=== PATIENT | female | born 1980 | race Caucasian/White ===

== ENCOUNTER 2017-09-22 10:44 | Emergency (ER) | payer MEDICARE, MEDICAID ==
[~2017-09-22] VITALS: Ht 157.5 cm; Wt 90.7 kg
[~2017-09-22 10:44] MED LIST: BUPR100T4 PO; FLUO40CA8 PO; LAMO25TA PO; LEVO75TA PO; METO100T14 PO; METO50TA16 PO
[2017-09-22 10:47] VITALS: BP 124/76
[2017-09-22] MEDS ORDERED: HYDROCODONE/APAP 5/325MG 1 EACH TABLET ONE (11:07)
--- NOTE | 2017-09-22 11:10 | NUR ---
PATIENT STATING SHE IS ALLERGIC TO NORCO AND VALIUM. MD INFORMED, NORCO NOT ADMINISTERED, MEDICATION RETURNED.
[2017-09-22] MEDS ORDERED: HYDROCODONE/APAP 5/325MG 1 EACH TABLET PO ONE (11:30)
== END 2017-09-22 12:10 | disposition home or self-care (01) ==
LOC: ER 10:50
DX: S83.92XA Sprain of unspecified site of left knee, initial encounter (principal); I10 Essential (primary) hypertension; F31.9 Bipolar disorder, unspecified; Z88.6 Allergy status to analgesic agent; Z88.8 Allergy status to other drugs, medicaments and biological substances; Z98.890 Other specified postprocedural states; W01.0XXA Fall on same level from slipping, tripping and stumbling without subsequent striking against object, initial encounter; Y93.89 Activity, other specified; Y92.89 Other specified places as the place of occurrence of the external cause; Y99.8 Other external cause status
CPT/HCPCS: 73564; 99284; A4606; Z7610

== ENCOUNTER 2017-10-23 19:27 | Emergency (ER) | payer MEDICARE, MEDICAID ==
[~2017-10-23] VITALS: Ht 157.5 cm; Wt 90.7 kg
[2017-10-23 19:38] VITALS: BP 137/99
[2017-10-23] MEDS ORDERED: oxyCODONE/APAP (5/325 MG) 1 UDTAB TABLET PO ONE (20:30)
[2017-10-23] MEDS ORDERED: oxyCODONE/APAP (5/325 MG) 1 UDTAB TABLET ONE (20:31)
== END 2017-10-23 20:51 | disposition left against medical advice (07) ==
LOC: ER 19:27
DX: M25.562 Pain in left knee (principal); M79.641 Pain in right hand; M79.642 Pain in left hand; F31.9 Bipolar disorder, unspecified; Z98.890 Other specified postprocedural states; Z88.6 Allergy status to analgesic agent; Z88.8 Allergy status to other drugs, medicaments and biological substances; F10.10 Alcohol abuse, uncomplicated; I10 Essential (primary) hypertension; Y90.9 Presence of alcohol in blood, level not specified
CPT/HCPCS: 73560; 99284; A4606; Z7610

== ENCOUNTER 2018-01-26 14:36 | Emergency (ER) | payer MEDICARE, MEDICAID ==
[~2018-01-26] VITALS: Ht 157.5 cm; Wt 90.7 kg
[2018-01-26 15:00] VITALS: BP 102/75
[2018-01-26] MEDS ORDERED: IBUPROFEN 600 MG TABLET PO ONE (15:28)
[2018-01-26] MEDS: IBUPROFEN 600 MG TABLET PO ONE (15:30)
[2018-01-26 15:51] LABS: BASOPHILS % (AUTO) 0.4 % (0.0-2.0); EOSINOPHILS % (AUTO) 0.4 % (0.0-6.0); HEMATOCRIT 41 % (33-45); HEMOGLOBIN 13.4 g/dL (11.5-14.8); LYMPHOCYTES # (AUTO) 2.2 /CMM (0.8-4.8); LYMPHOCYTES % (AUTO) 23.5 % (20.0-44.0); MEAN CORPUSCULAR HGB CONC 33 g/dl (31.0-36.0); MEAN CORPUSCULAR VOLUME 86 fL (82-100); MONOCYTES # (AUTO) 0.5 /CMM (0.1-1.30); MONOCYTES % (AUTO) 5.9 % (2.0-12.0); NEUTROPHILS # (AUTO) 6.5 /CMM (1.8-8.9); NEUTROPHILS % (AUTO) 69.8 % (43.0-81.0); PLATELET COUNT (AUTO) 366 /CMM (150-450); RDW COEFFICIENT OF VARIATION 13.3 (11.5-15.0); RED BLOOD CELL COUNT(AUTO) 4.75 MIL/uL (4.0-5.2); WHITE BLOOD COUNT (AUTO) 9.2 K/uL (4.3-11.0)
[2018-01-26 15:58] LABS: CALCIUM, SERUM 8.7 mg/dL (8.5-10.1); CREATININE 0.8 mg/dL (0.6-1.3); POTASSIUM 4.4 mmol/L (3.5-5.1)
[2018-01-26 16:29] LABS: INR 0.97 (0.87-1.13)
== END 2018-01-26 17:09 | disposition home or self-care (01) ==
LOC: ER 14:40
DX: R51 Headache (principal); R42 Dizziness and giddiness; I10 Essential (primary) hypertension; F31.9 Bipolar disorder, unspecified; Z88.5 Allergy status to narcotic agent; E11.9 Type 2 diabetes mellitus without complications; F10.10 Alcohol abuse, uncomplicated; Y90.9 Presence of alcohol in blood, level not specified; Z60.2 Problems related to living alone; Z98.890 Other specified postprocedural states
CPT/HCPCS: 36415; 70450; 80048; 84703; 85025; 85730; 99285; A4606; Z7610

== ENCOUNTER 2018-02-05 18:27 | Emergency (ER) | payer MEDICARE, MEDICAID ==
[~2018-02-05] VITALS: Ht 157.5 cm; Wt 90.7 kg
[2018-02-05 18:34] VITALS: BP 146/88
[2018-02-05] MEDS ORDERED: diphenhydrAMINE HCL 50 MG/ML VIAL IV ONE (19:00)
[2018-02-05] MEDS ORDERED: IV NS 0.9% 1,000 ML BAG IV ONE (19:00)
[2018-02-05] MEDS ORDERED: KETOROLAC TROMETHAMINE INJ 30 MG/ML VIAL IV ONE (19:00)
[2018-02-05] MEDS ORDERED: METOCLOPRAMIDE HCL 10 MG/2 ML VIAL IV ONE (19:00)
[2018-02-05 19:20] LABS: BASOPHILS # (AUTO) 0.1 /CMM (0.0-0.2); BASOPHILS % (AUTO) 0.5 % (0.0-2.0); EOSINOPHILS % (AUTO) 0.7 % (0.0-6.0); HEMATOCRIT 41 % (33-45); HEMOGLOBIN 13.8 g/dL (11.5-14.8); LYMPHOCYTES # (AUTO) 1.9 /CMM (0.8-4.8); LYMPHOCYTES % (AUTO) 17.6 % (20.0-44.0); MEAN CORPUSCULAR HGB CONC 34 g/dl (31.0-36.0); MEAN CORPUSCULAR VOLUME 85 fL (82-100); MONOCYTES # (AUTO) 0.6 /CMM (0.1-1.30); MONOCYTES % (AUTO) 5.5 % (2.0-12.0); NEUTROPHILS # (AUTO) 8.1 /CMM (1.8-8.9); NEUTROPHILS % (AUTO) 75.7 % (43.0-81.0); PLATELET COUNT (AUTO) 405 /CMM (150-450); RED BLOOD CELL COUNT(AUTO) 4.79 MIL/uL (4.0-5.2); WHITE BLOOD COUNT (AUTO) 10.8 K/uL (4.3-11.0)
[2018-02-05 19:31] LABS: CALCIUM, SERUM 8.6 mg/dL (8.5-10.1); CREATININE 0.9 mg/dL (0.6-1.3); POTASSIUM 3.8 mmol/L (3.5-5.1)
[2018-02-05] MEDS ORDERED: KETOROLAC TROMETHAMINE INJ 30 MG/ML VIAL ONE (19:33)
[2018-02-05] MEDS ORDERED: METOCLOPRAMIDE HCL 10 MG/2 ML VIAL ONE (19:33)
[2018-02-05] MEDS ORDERED: diphenhydrAMINE HCL 50 MG/ML VIAL ONE (19:33)
[2018-02-05 19:37] LABS: ALBUMIN 3.7 g/dL (3.4-5.0); BILIRUBIN,DIRECT 0.1 mg/dL (0.0-0.2); BILIRUBIN,TOTAL 0.3 mg/dL (0.2-1.0); TOTAL PROTEIN, SERUM 7.3 g/dL (6.4-8.2)
--- NOTE | 2018-02-05 19:48 | NUR ---
PT IS HAVING ARGUMENT WITH SIGNIFICANT OTHER & DOESN'T WANT TO BE TREATED FOR HER HEADACHE @ THIS TIME. PT VERBALLY ABUSIVE TO ME STS " I DON'T NEED TELL U WHAT'S WRONG WITH ME, CAN'T U JUST READ IT FROM MY CHART, ARE YOU A DOCTOR?". EXPLAINED TO PT THAT I STILL NEED TO ASSESS HER & TO KNOW WHAT'S GOING ON COMING FROM THE PT. JAMIL LILLY AWARE OF THE SITUATION.
--- NOTE | 2018-02-05 20:07 | NUR ---
PT WALKED OUT OF ED, VERBALLY ABUSIVE TO STAFF. JAMIL LILLY AWARE.
== END 2018-02-05 20:20 | disposition left against medical advice (07) ==
LOC: ER 18:28
DX: R51 Headache (principal); I10 Essential (primary) hypertension; E11.9 Type 2 diabetes mellitus without complications; F31.9 Bipolar disorder, unspecified; E03.9 Hypothyroidism, unspecified; F10.10 Alcohol abuse, uncomplicated; Y90.9 Presence of alcohol in blood, level not specified; Z90.721 Acquired absence of ovaries, unilateral; Z88.5 Allergy status to narcotic agent; Z88.6 Allergy status to analgesic agent; Z88.8 Allergy status to other drugs, medicaments and biological substances; Z60.2 Problems related to living alone
CPT/HCPCS: 36415; 80048; 80076; 84702; 85025; 99284; A4216; J2765; J7030; A4606; J1200; J1885; Z7610

== ENCOUNTER 2019-01-06 20:44 | Emergency (ER) | payer MEDICARE, MEDICAID ==
[~2019-01-06] VITALS: Ht 157.5 cm; Wt 99.8 kg
[~2019-01-06 20:44] MED LIST changes: -LAMO25TA PO; +LAMO25TA10 PO
--- NOTE | 2019-01-06 21:11 | NUR ---
CALLED PT TO BE TRIAGED, NO ANSWER
[2019-01-06 21:14] VITALS: BP 149/100
== END 2019-01-06 22:15 | disposition home or self-care (01) ==
LOC: ER 20:45
DX: F10.129 Alcohol abuse with intoxication, unspecified (principal); F41.9 Anxiety disorder, unspecified; I10 Essential (primary) hypertension; E11.9 Type 2 diabetes mellitus without complications; F32.9 Major depressive disorder, single episode, unspecified; E03.9 Hypothyroidism, unspecified; Z98.890 Other specified postprocedural states; Z88.8 Allergy status to other drugs, medicaments and biological substances; Z60.2 Problems related to living alone; Z79.899 Other long term (current) drug therapy; Y90.9 Presence of alcohol in blood, level not specified

== ENCOUNTER 2019-01-09 09:51 | Emergency (ER) | payer OTHER, MEDICARE, MEDICAID ==
[~2019-01-09] VITALS: Ht 157.5 cm; Wt 99.8 kg
--- NOTE | 2019-01-09 10:05 | NUR ---
YOGI, C/O "ETOH WITHDRAWAL, LAST ETOH WAS 3 DAYS AGO", TO ER BED 13, HOOKED TO MONITOR, AWAITING MD BUTTERFIELD.
--- NOTE | 2019-01-09 10:09 | NUR ---
SEEN BY DR LAY
[2019-01-09 10:22] VITALS: BP 137/81
--- NOTE | 2019-01-09 10:22 | NUR ---
Patient incustody left in no apparent distress accompanied by 2 [employer].
--- NOTE | 2019-01-09 10:22 | NUR ---
Patient discharged in custody in stable condition. Written and verbal after care instructions given. Patient verbalizes understanding of instruction.
== END 2019-01-09 10:22 ==
LOC: ER 09:53
DX: I10 Essential (primary) hypertension (principal); E11.9 Type 2 diabetes mellitus without complications; F32.9 Major depressive disorder, single episode, unspecified; E03.9 Hypothyroidism, unspecified; Z98.890 Other specified postprocedural states; Z88.8 Allergy status to other drugs, medicaments and biological substances; Z88.6 Allergy status to analgesic agent; Z60.2 Problems related to living alone; Z79.899 Other long term (current) drug therapy

== ENCOUNTER 2019-09-12 10:55 | Emergency (ER) | payer MEDICARE, OTHER ==
[~2019-09-12] VITALS: Ht 157.5 cm; Wt 104.3 kg
[2019-09-12 11:00] VITALS: BP 148/91
[2019-09-12] MEDS ORDERED: LORAZEPAM 0.5 MG TABLET ONE (11:14)
--- NOTE | 2019-09-12 11:18 | NUR ---
patient a/ox4, ambulatory with steady gait, breathinge ellen and unlabored, no sob noted. No distress noted. Patient discharged to home in stable condition. Written and verbal after care instructions given. Patient verbalizes understanding of instruction. Instructed not to drive.
[2019-09-12] MEDS ORDERED: LORAZEPAM 1 MG TABLET PO ONE (11:30)
== END 2019-09-12 11:20 | disposition home or self-care (01) ==
LOC: ER 10:55
DX: F13.239 Sedative, hypnotic or anxiolytic dependence with withdrawal, unspecified (principal); I10 Essential (primary) hypertension; E11.9 Type 2 diabetes mellitus without complications; F32.9 Major depressive disorder, single episode, unspecified; E03.9 Hypothyroidism, unspecified; Z98.890 Other specified postprocedural states; Z88.8 Allergy status to other drugs, medicaments and biological substances; Z88.6 Allergy status to analgesic agent; Z79.899 Other long term (current) drug therapy

== ENCOUNTER 2019-09-19 20:38 | Emergency (ER) | payer MEDICARE, MEDICAID ==
[~2019-09-19] VITALS: Ht 157.5 cm; Wt 104.3 kg
--- NOTE | 2019-09-19 21:24 | NUR ---
PT AAOX4. AMBULATORY WITH STEADY GAIT. BIBSELF C/O LIGHT HEADED AND WANTING TO VOMIT. PT STATED SHE TOOK 3 ATIVANS AND DRANK 12 BOTTLES OF IPA BEER. PT PLACED IN BED 11, ON MONITOR AND PULSE OX. VSS.
[2019-09-19] MEDS ORDERED: IV NS 0.9% 1,000 ML BAG IV ONE (21:30)
[2019-09-19 21:41] LABS: BASOPHILS # (AUTO) 0.1 /CMM (0.0-0.2); BASOPHILS % (AUTO) 0.4 % (0.0-2.0); EOSINOPHILS % (AUTO) 0.6 % (0.0-6.0); HEMATOCRIT 35 % (33-45); HEMOGLOBIN 10.8 g/dL (11.5-14.8); LYMPHOCYTES # (AUTO) 3.3 /CMM (0.8-4.8); LYMPHOCYTES % (AUTO) 24.5 % (20.0-44.0); MEAN CORPUSCULAR HGB CONC 31 g/dl (31.0-36.0); MEAN CORPUSCULAR VOLUME 69 fL (82-100); MONOCYTES # (AUTO) 0.9 /CMM (0.1-1.30); MONOCYTES % (AUTO) 6.7 % (2.0-12.0); NEUTROPHILS % (AUTO) 67.8 % (43.0-81.0); PLATELET COUNT (AUTO) 466 /CMM (150-450); RED BLOOD CELL COUNT(AUTO) 5.11 MIL/uL (4.0-5.2); WHITE BLOOD COUNT (AUTO) 13.3 K/uL (4.3-11.0)
[2019-09-19 21:50] LABS: CALCIUM, SERUM 9.1 mg/dL (8.5-10.1); CARBON DIOXIDE 24 mmol/L (21-32); CHLORIDE 102 mmol/L (98-107); CREATININE 0.8 mg/dL (0.6-1.3); GLUCOSE 91 mg/dL (74-106); POTASSIUM 3.3 mmol/L (3.5-5.1); SODIUM SERUM 140 mmol/L (136-145); UREA NITROGEN, BLOOD 14 mg/dL (7-18)
[2019-09-19 21:55] LABS: ALANINE AMINOTRANSFERASE 41 U/L (12-78); ALBUMIN 3.7 g/dL (3.4-5.0); ALCOHOL, BLOOD 51 mg/dL (0-0); ALKALINE PHOSPHATASE 123 U/L (46-116); ASPARTATE AMINOTRANSFERASE 51 U/L (15-37); BILIRUBIN,DIRECT 0.1 mg/dL (0.0-0.2); BILIRUBIN,TOTAL 0.2 mg/dL (0.2-1.0)
--- NOTE | 2019-09-19 21:55 | NUR ---
URINE SENT TO LAB
[2019-09-19 21:56] LABS: ACETAMINOPHEN < 10 ug/ml (10-30); SALICYLATE 2.4 mg/dL (2.8-20.0)
[2019-09-19 22:00] LABS: APPEARANCE,URINE Clear (CLEAR); BILIRUBIN,URINE Negative (NEGATIVE); BLOOD, URINE Large Ery/uL (NEGATIVE); COLOR,URINE Yellow (YELLOW); KETONES,URINE Negative (NEGATIVE); LEUKOCYTE ESTERASE ,URINE Trace (NEGATIVE); NITRITE, URINE Negative (NEGATIVE); PROTEIN,URINE Negative (NEGATIVE); UGLUCOSE Negative (NEGATIVE); UROBILINOGEN,URINE 0.2 EU/dL (0.2)
[2019-09-19 22:16] LABS: BACTERIA,URINE Few /HPF (None Seen); RBC,URINE 21-50 /HPF (0-2); SQUAMOUS EPITHELIAL CELL,UR Few /HPF (None Seen)
--- NOTE | 2019-09-19 23:00 | NUR ---
IV removed. Catheter intact and site benign. Pressure and 4x4 applied to site. No bleeding noted.
--- NOTE | 2019-09-19 23:33 | NUR ---
Patient discharged to home in stable condition. Written and verbal after care instructions given. Patient verbalizes understanding of instruction. Pt ambulated with steady gait. Picked up by .
[2019-09-19 23:42] VITALS: BP 127/78
== END 2019-09-19 23:42 | disposition home or self-care (01) ==
LOC: ER 20:38
DX: F10.239 Alcohol dependence with withdrawal, unspecified (principal); D64.9 Anemia, unspecified; I10 Essential (primary) hypertension; E11.9 Type 2 diabetes mellitus without complications; F32.9 Major depressive disorder, single episode, unspecified; E03.9 Hypothyroidism, unspecified; Z98.890 Other specified postprocedural states; Z88.6 Allergy status to analgesic agent; Z88.8 Allergy status to other drugs, medicaments and biological substances; Z79.899 Other long term (current) drug therapy; Y90.9 Presence of alcohol in blood, level not specified
CPT/HCPCS: 36415; 80048; 80076; 80305; 80307; 80329; 81001; 84703; 85025; 87086; 93005; 99284; G0480; J7030; 81000-TC

== ENCOUNTER 2019-09-22 06:11 | Emergency (ER) | payer MEDICARE, OTHER ==
[~2019-09-22] VITALS: Ht 157.5 cm; Wt 104.3 kg
[2019-09-22 06:20] VITALS: BP 134/68
[2019-09-22] MEDS ORDERED: OLANZAPINE 10 MG VIAL IM ONE ×2 (06:30→06:32)
== END 2019-09-22 06:58 | disposition home or self-care (01) ==
LOC: ER 06:16
DX: F41.9 Anxiety disorder, unspecified (principal); F31.9 Bipolar disorder, unspecified; I10 Essential (primary) hypertension; E11.9 Type 2 diabetes mellitus without complications; E03.9 Hypothyroidism, unspecified; E66.01 Morbid (severe) obesity due to excess calories; Z68.41 Body mass index [BMI] 40.0-44.9, adult; Z90.89 Acquired absence of other organs; Z88.6 Allergy status to analgesic agent; Z88.5 Allergy status to narcotic agent; Z88.8 Allergy status to other drugs, medicaments and biological substances; Z79.899 Other long term (current) drug therapy
CPT/HCPCS: 96372; 99283; J3490

== ENCOUNTER 2019-09-23 01:31 | Emergency (ER) | payer MEDICARE, OTHER ==
[~2019-09-23] VITALS: Ht 157.5 cm; Wt 104.3 kg
[2019-09-23 01:38] VITALS: BP 160/100
== END 2019-09-23 01:45 | disposition left against medical advice (07) ==
LOC: ER 01:33
DX: Z53.21 Procedure and treatment not carried out due to patient leaving prior to being seen by health care provider (principal); R06.02 Shortness of breath; I10 Essential (primary) hypertension; E11.9 Type 2 diabetes mellitus without complications; F32.9 Major depressive disorder, single episode, unspecified; E03.9 Hypothyroidism, unspecified; Z98.890 Other specified postprocedural states

== ENCOUNTER 2020-05-23 01:27 | Emergency (ER) | payer MEDICARE, OTHER ==
[~2020-05-23] VITALS: Ht 160 cm; Wt 104.3 kg
--- NOTE | 2020-05-23 01:49 | NUR ---
mellisa 88 from home for etoh. field bs 155. pt rr even and unlabored. no sob noted. no nvd at this time. no acute distress noted. pt connected to monitor. pt waiting for md vizcarra.
[2020-05-23 02:14] LABS: BASOPHILS # (AUTO) 0.1 /CMM (0.0-0.2); BASOPHILS % (AUTO) 0.7 % (0.0-2.0); EOSINOPHILS % (AUTO) 0.1 % (0.0-6.0); HEMATOCRIT 47 % (33-45); HEMOGLOBIN 15.6 g/dL (11.5-14.8); LYMPHOCYTES # (AUTO) 1.4 /CMM (0.8-4.8); LYMPHOCYTES % (AUTO) 16.9 % (20.0-44.0); MEAN CORPUSCULAR HGB CONC 33 g/dl (31.0-36.0); MEAN CORPUSCULAR VOLUME 80 fL (82-100); MONOCYTES # (AUTO) 0.9 /CMM (0.1-1.30); MONOCYTES % (AUTO) 11.1 % (2.0-12.0); NEUTROPHILS # (AUTO) 5.9 /CMM (1.8-8.9); NEUTROPHILS % (AUTO) 71.2 % (43.0-81.0); PLATELET COUNT (AUTO) 373 /CMM (150-450); RED BLOOD CELL COUNT(AUTO) 5.86 MIL/uL (4.0-5.2); WHITE BLOOD COUNT (AUTO) 8.3 K/uL (4.3-11.0)
[2020-05-23 02:48] LABS: ALBUMIN 3.4 g/dL (3.4-5.0); BILIRUBIN,TOTAL 0.2 mg/dL (0.2-1.0); CALCIUM, SERUM 8.3 mg/dL (8.5-10.1); CREATININE 0.9 mg/dL (0.6-1.3); POTASSIUM 3.7 mmol/L (3.5-5.1)
--- NOTE | 2020-05-23 06:22 | NUR ---
PATIENT SPOKE WITH BOYFRIEND ON THE PHONE REGARDING PICKING PATIENT UP FROM ER.
--- NOTE | 2020-05-23 06:32 | NUR ---
PATIENT IS AMBULATORY WITH A STEADY GAIT.
--- NOTE | 2020-05-23 06:33 | NUR ---
PATIENT IS ALERT AND ORIENTED TO NAME, DATE, TIME, PLACE. PATIENT ABLE TO VERIFY PERSONAL ADDRESS.
--- NOTE | 2020-05-23 06:34 | NUR ---
PATIENT OFFERED WARM BLANKET AND CLOTHING DUE TO PATIENT WEARING SHIRT AND SHORTS. Addendum: 05/23/20 at 0642 by BIPIN PATIENT REFUSED.
--- NOTE | 2020-05-23 06:35 | NUR ---
PATIENT IS WALKING AWAY FROM BED W/ STEADY GAIT, STATING, "I WANT TO GET OUT OF HERE". NURSING STAFF AND ER DOCTOR OFFERED PATIENT TO STAY IN BED UNTIL BOYFRIEND ARRIVES, PATIENT STATES, "NO, FUCK YOU!" PATIENT THEN CONTINUES TO STORM OUT OF THE ER.
--- NOTE | 2020-05-23 06:35 | NUR ---
PATIENT STATES, "I DON'T WANT TO WAIT IN HERE BECAUSE MY BOYFRIEND IS SO STUPID AND WON'T BE ABLE TO FIND ME."
--- NOTE | 2020-05-23 07:40 | NUR ---
Patient discharged to home in stable condition. Written and verbal after care instructions given. Patient verbalizes understanding of instruction.
[2020-05-23 07:57] VITALS: BP 120/82
== END 2020-05-23 07:57 | disposition home or self-care (01) ==
LOC: ER 01:29
DX: F10.121 Alcohol abuse with intoxication delirium (principal); I10 Essential (primary) hypertension; E11.9 Type 2 diabetes mellitus without complications; F31.9 Bipolar disorder, unspecified; E03.9 Hypothyroidism, unspecified; Y90.8 Blood alcohol level of 240 mg/100 ml or more; Z87.11 Personal history of peptic ulcer disease; Z98.890 Other specified postprocedural states; Z88.6 Allergy status to analgesic agent; Z88.5 Allergy status to narcotic agent; Z88.8 Allergy status to other drugs, medicaments and biological substances; Z79.899 Other long term (current) drug therapy
CPT/HCPCS: 36415; 80053-TC; 83690-TC; 84702-TC; 85025-TC; G0480

== ENCOUNTER 2020-06-11 22:27 | Emergency (ER) | payer MEDICARE, OTHER ==
[~2020-06-11] VITALS: Ht 157.5 cm; Wt 105.7 kg
--- NOTE | 2020-06-11 22:30 | NUR ---
PT BIBRA FROM STREET C/O ALCOHOL INTOXICATION. PT SCREAMING AND VERY AGGRESSIVE ON ARRIVAL. PT UNCOOPERATIVE AND VERBALLY AGGRESSIVE TOWARDS STAFF. DENIES SI/HI, STATES "I'M JUST AN ALCOHOLIC". RESPIRATIONS EVEN AND UNLABORED. NO ACUTE DISTRESS NOTED AT THIS TIME. PT PLACED ON MONITOR, WILL CONTINUE TO MONITOR
[2020-06-11] MEDS ORDERED: diphenhydrAMINE HCL 50 MG/ML VIAL ONE (22:37)
[2020-06-11] MEDS ORDERED: HALOPERIDOL LACTATE INJ 5 MG/ML VIAL ONE (22:37)
[2020-06-11] MEDS ORDERED: diphenhydrAMINE HCL 50 MG/ML VIAL IM ONE (23:00)
[2020-06-11] MEDS ORDERED: HALOPERIDOL LACTATE INJ 5 MG/ML VIAL IM ONE (23:00)
[2020-06-11 23:02] LABS: BASOPHILS # (AUTO) 0.2 /CMM (0.0-0.2); BASOPHILS % (AUTO) 1.2 % (0.0-2.0); EOSINOPHILS % (AUTO) 0.1 % (0.0-6.0); HEMATOCRIT 45 % (33-45); HEMOGLOBIN 14.7 g/dL (11.5-14.8); LYMPHOCYTES # (AUTO) 5.3 /CMM (0.8-4.8); LYMPHOCYTES % (AUTO) 40.9 % (20.0-44.0); MEAN CORPUSCULAR HGB CONC 33 g/dl (31.0-36.0); MEAN CORPUSCULAR VOLUME 80 fL (82-100); MONOCYTES # (AUTO) 0.6 /CMM (0.1-1.30); MONOCYTES % (AUTO) 4.7 % (2.0-12.0); NEUTROPHILS # (AUTO) 6.8 /CMM (1.8-8.9); NEUTROPHILS % (AUTO) 53.1 % (43.0-81.0); PLATELET COUNT (AUTO) 566 /CMM (150-450); RED BLOOD CELL COUNT(AUTO) 5.69 MIL/uL (4.0-5.2); WHITE BLOOD COUNT (AUTO) 12.8 K/uL (4.3-11.0)
[2020-06-11 23:12] LABS: ALANINE AMINOTRANSFERASE 97 U/L (12-78); ALBUMIN 3.7 g/dL (3.4-5.0); ALCOHOL, BLOOD 406 mg/dL (0-0); ALKALINE PHOSPHATASE 115 U/L (46-116); ASPARTATE AMINOTRANSFERASE 98 U/L (15-37); BILIRUBIN,DIRECT 0.1 mg/dL (0.0-0.2); BILIRUBIN,TOTAL 0.3 mg/dL (0.2-1.0); CALCIUM, SERUM 8.8 mg/dL (8.5-10.1); CARBON DIOXIDE 27 mmol/L (21-32); CHLORIDE 105 mmol/L (98-107); GLUCOSE 173 mg/dL (74-106); POTASSIUM 3.4 mmol/L (3.5-5.1); SODIUM SERUM 148 mmol/L (136-145); TOTAL PROTEIN, SERUM 8.4 g/dL (6.4-8.2); UREA NITROGEN, BLOOD 7 mg/dL (7-18)
[2020-06-11 23:13] LABS: ACETAMINOPHEN < 2 ug/ml (10-30)
[2020-06-12] MEDS ORDERED: LORAZEPAM INJ 2 MG/ML VIAL ONE ×2 (01:22→05:27)
--- NOTE | 2020-06-12 01:27 | NUR ---
PT AWAKE, SCREAMING INAPPROPRIATELY. SITTER AT BEDSIDE. MD AWARE.
--- NOTE | 2020-06-12 01:28 | NUR ---
verbal order for ativan 2mg given and carried out
[2020-06-12] MEDS ORDERED: LORAZEPAM INJ 2 MG/ML VIAL IM ONE ×2 (01:30→05:30)
[2020-06-12] MEDS ORDERED: OLANZAPINE 10 MG VIAL IM ONE (02:46)
[2020-06-12] MEDS ORDERED: HALOPERIDOL LACTATE INJ 5 MG/ML VIAL ONE ×2 (02:49→05:27)
--- NOTE | 2020-06-12 03:59 | NUR ---
PER ER MD ORDER 5 MG IM HALDOL XNOW.
--- NOTE | 2020-06-12 05:21 | NUR ---
ATTEMPTED TO CONTACT PT'S FRIEND MATHEW ([phone]) TO FAMILY LIFE COUNSELOR PATIENT. LEFT MESSAGE, WILL FOLLOW UP
[2020-06-12] MEDS ORDERED: diphenhydrAMINE HCL 50 MG/ML VIAL ONE (05:27)
[2020-06-12] MEDS ORDERED: diphenhydrAMINE HCL 50 MG/ML VIAL IM ONE (05:30)
[2020-06-12] MEDS ORDERED: HALOPERIDOL LACTATE INJ 5 MG/ML VIAL IM ONE ×2 (05:30→06:00)
--- NOTE | 2020-06-12 05:30 | NUR ---
PT AWAKE, SCREAMING INAPPROPRIATELY. SITTER AT BEDSIDE. MD AWARE. PT STILL ON MONITOR, WILL CONTINUE TO MONITOR.
[2020-06-12 05:38] LABS: BILIRUBIN,URINE NEGATIVE (NEGATIVE); COLOR,URINE YELLOW (YELLOW); LEUKOCYTE ESTERASE ,URINE NEGATIVE (NEGATIVE); NITRITE, URINE NEGATIVE (NEGATIVE); PROTEIN,URINE NEGATIVE (NEGATIVE); UGLUCOSE NEGATIVE (NEGATIVE); UROBILINOGEN,URINE 0.2 EU/dL (0.2)
--- NOTE | 2020-06-12 07:04 | NUR ---
PT STATED TO CALL THIS NUMBER TO GET IN CONTACT WITH HER BOYFRIEND
--- NOTE | 2020-06-12 07:30 | NUR ---
Boyfriend's phone number [phone]
--- NOTE | 2020-06-12 07:40 | NUR ---
PATIENT A/OX4, VERBALLY RESPONSIVE, RESTRAINTS REMOVED, PATIENT STOPPED SCREAMING BECAME MORE COOPERATIVE. AMBULATORY WITH STEADY GAIT. BOYFRIEND MATHEW ANSWERED AND WILL ASSISTANT PROFESSOR SURGICAL TECHNOLOGY THE PATIENT IN 20 MINS.
--- NOTE | 2020-06-12 08:04 | NUR ---
PATIENT A/OX4, AMBULATORY WITH STEADY GAIT. DENIES SUICIDAL IDEATION. IN NO DISTRESS. BOYFRIEND MATHEW IS OUTSIDE TO OCCUPATIONAL THERAPY DIRECTOR THE PATIENT. Patient discharged to home in stable condition. Written and verbal after care instructions given. Patient verbalizes understanding of instruction.
[2020-06-12 08:06] VITALS: BP 143/79
[2020-06-12 09:18] LABS: BACTERIA,URINE Rare /HPF (None Seen); RBC,URINE 0-3 /HPF (0-2); SQUAMOUS EPITHELIAL CELL,UR Few /HPF (None Seen); WBC,URINE 0-2 /HPF (0-3)
== END 2020-06-12 08:06 | disposition home or self-care (01) ==
LOC: ER 22:31
DX: S00.11XA Contusion of right eyelid and periocular area, initial encounter (principal); F10.121 Alcohol abuse with intoxication delirium; I10 Essential (primary) hypertension; E11.9 Type 2 diabetes mellitus without complications; F32.9 Major depressive disorder, single episode, unspecified; E03.9 Hypothyroidism, unspecified; Z98.890 Other specified postprocedural states; Z88.6 Allergy status to analgesic agent; Z88.8 Allergy status to other drugs, medicaments and biological substances; Z79.899 Other long term (current) drug therapy; X58.XXXA Exposure to other specified factors, initial encounter; Y93.89 Activity, other specified; Y92.89 Other specified places as the place of occurrence of the external cause; Y99.8 Other external cause status; Y90.8 Blood alcohol level of 240 mg/100 ml or more
CPT/HCPCS: 36415; 70450; 80048; 80076; 80299; 80307; 80320; 81001; 82962; 85025; 96372 ×3; 99285; J1200 ×2; J1630 ×3; J2060 ×2; J3490; G0480

== ENCOUNTER 2020-06-15 17:35 | Emergency (ER) | payer MEDICARE, OTHER ==
[~2020-06-15] VITALS: Ht 157.5 cm; Wt 104.3 kg
--- NOTE | 2020-06-15 17:40 | NUR ---
called to triage but no answer
[2020-06-15] MEDS ORDERED: ONDA4TAB5 PO (18:05)
[2020-06-15] MEDS ORDERED: CHLO25CA22 PO (18:05)
[2020-06-15] MEDS ORDERED: ONDANSETRON 4 MG TAB.RAPDIS ONE (18:11)
[2020-06-15] MEDS ORDERED: CHLORDIAZEPOXIDE HCL 25 MG CAPSULE ONE (18:11)
[2020-06-15 18:23] VITALS: BP 136/88
[2020-06-15] MEDS ORDERED: CHLORDIAZEPOXIDE HCL 25 MG CAPSULE PO ONE (18:30)
[2020-06-15] MEDS ORDERED: ONDANSETRON 4 MG TAB.RAPDIS SL ONE (18:30)
[2020-06-16] MEDS ORDERED: CHLO25CA22 PO (22:19)
== END 2020-06-15 18:26 | disposition home or self-care (01) ==
LOC: ER 17:40
DX: S00.83XA Contusion of other part of head, initial encounter (principal); F10.239 Alcohol dependence with withdrawal, unspecified; I10 Essential (primary) hypertension; E11.9 Type 2 diabetes mellitus without complications; F31.9 Bipolar disorder, unspecified; E03.9 Hypothyroidism, unspecified; Y90.9 Presence of alcohol in blood, level not specified; Z98.890 Other specified postprocedural states; Z88.6 Allergy status to analgesic agent; Z88.5 Allergy status to narcotic agent; Z88.8 Allergy status to other drugs, medicaments and biological substances; Z79.899 Other long term (current) drug therapy; W18.39XA Other fall on same level, initial encounter; Y93.89 Activity, other specified; Y92.89 Other specified places as the place of occurrence of the external cause; Y99.8 Other external cause status
CPT/HCPCS: 99283; Q0162

== ENCOUNTER 2020-06-16 22:14 | Emergency (ER) | payer MEDICARE, OTHER ==
[~2020-06-16] VITALS: Ht 165.1 cm; Wt 104.3 kg
[~2020-06-16 22:14] MED LIST changes: +CHLO25CA22 PO; +ONDA4TAB5 PO
[2020-06-16 22:15] VITALS: BP 132/79
[2020-06-16] MEDS ORDERED: CHLO25CA22 PO (22:19)
== END 2020-06-16 22:21 | disposition home or self-care (01) ==
LOC: ER 22:16
DX: F10.239 Alcohol dependence with withdrawal, unspecified (principal); I10 Essential (primary) hypertension; E11.9 Type 2 diabetes mellitus without complications; F31.9 Bipolar disorder, unspecified; E03.9 Hypothyroidism, unspecified; Y90.9 Presence of alcohol in blood, level not specified; Z98.890 Other specified postprocedural states; Z87.11 Personal history of peptic ulcer disease; Z88.6 Allergy status to analgesic agent; Z88.5 Allergy status to narcotic agent; Z88.8 Allergy status to other drugs, medicaments and biological substances; Z79.899 Other long term (current) drug therapy

== ENCOUNTER 2020-06-17 13:39 | Emergency (ER) | payer MEDICARE, OTHER ==
[~2020-06-17] VITALS: Ht 157.5 cm; Wt 104.3 kg
[2020-06-17 13:47] VITALS: BP 147/128
--- NOTE | 2020-06-17 13:50 | NUR ---
anxious x 3 days akathesia, on psych meds. Patient a/ox4, breathing even and unlabored, no sob noted. Needs attended.
--- NOTE | 2020-06-17 14:50 | NUR ---
pt aggitated and demanding her ativan-received IM injection and eloped-couldn't be stopped-advised lithopone charger-aware
[2020-06-17] MEDS ORDERED: LORAZEPAM INJ 2 MG/ML VIAL ONE (14:54)
[2020-06-17] MEDS ORDERED: LORAZEPAM INJ 2 MG/ML VIAL IM ONE (15:00)
--- NOTE | 2020-06-17 15:50 | NUR ---
SW attempted to meet with pt. to provide resources & referrals for symptoms of anxiety. However, pt. eloped.
== END 2020-06-17 15:45 | disposition left against medical advice (07) ==
LOC: ER 13:39
DX: F10.129 Alcohol abuse with intoxication, unspecified (principal); M79.642 Pain in left hand; M79.641 Pain in right hand; I10 Essential (primary) hypertension; E11.9 Type 2 diabetes mellitus without complications; F31.9 Bipolar disorder, unspecified; E03.9 Hypothyroidism, unspecified; Y90.9 Presence of alcohol in blood, level not specified; Z98.890 Other specified postprocedural states; Z88.6 Allergy status to analgesic agent; Z88.5 Allergy status to narcotic agent; Z88.8 Allergy status to other drugs, medicaments and biological substances; Z79.899 Other long term (current) drug therapy
CPT/HCPCS: 96372; 99283; J2060

== ENCOUNTER 2020-08-22 13:51 | Emergency (ER) | payer MEDICARE, OTHER ==
[~2020-08-22] VITALS: Ht 160 cm; Wt 120.2 kg
--- NOTE | 2020-08-22 14:19 | NUR ---
urine collected and sent to the lab
[2020-08-22] MEDS ORDERED: ONDANSETRON HCL/PF 4 MG/2 ML VIAL ONE (14:30)
[2020-08-22] MEDS ORDERED: IV NS 0.9% 1,000 ML BAG IV ONE (14:30)
[2020-08-22] MEDS ORDERED: ONDANSETRON HCL/PF 4 MG/2 ML VIAL IV ONE (14:30)
--- NOTE | 2020-08-22 14:33 | NUR ---
SS consult: SS Consult requested for ETOH use. The pt. is a 39-year old female. Veronica MORAN met with pt. bedside an attempted to conduct interview with pt. However, pt. was not arousable to verbal cues. LUISA placed the following addiction resources in pt.'s discharge packet. ADDICTION RESOURCES For Drugs and Alcohol [facility] Substance Abuse Helpline([facility] Outpatient treatment, residential treatment, recovery support for youth and adults [facility] www.actionfamilycounselingFliptu [facility] Teen programs for drug/alcohol education and support [facility] [place]. Program for adults, sliding scale provides support and education [employer] www.Eyes On Freight[employer].org [place]; Outpatient/residential treatment programs; transition to sober living Cri-Help www.cri-help.org [place]; Outpatient and residential treatment programs; transition to sober living I-ADARP Inter [place] [facility] Jarvis Pyle; Outpatient education and supportive programs for teens and adults [facility] www.[facility]wom[facility]recpars[facility] cent[facility].org [place]; Residential treatment and work program for females only [place] www.[facility].org [place]: Outpatient/residential treatment program for teens and young adults [facility] [place] www.[facility].org [place] Detox, inpatient, outpatient for adults and youth [facility], [facility]. [place]; Outpatient programs and referrals to community residential programs. Alcoholics Anonymous -SFV information and meeting and schedules www.aa-intergroup.org Yj-Ktgv-Vuvlnof https://al-anon.org/ [place]andiver support groups for family of alcoholics. Marijuana Anonymous www.madistrict6.org -SFV listing of meetings Narcotics Anonymous www.na.org SOBER LIVING RESOURCES The Sober Living Network www.soberhousing.net A non-profit agency that provides resources to recovery and sober living homes throughout [place], [place], [facility] Mens Sober Living Homes: A Work in Progress, Rajinder Cabrito [facility] Recovery Advocates, [facility] Womens Sober Living Homes: [facility] Behavioral Health Services [address] [place], [place] [facility] Coed Sober Living Homes: [facility] Counseling--Outpatient [facility] [address] [facility] [place] [address] (Specializes in in-depth psychotherapy for emotional distress: anxiety, depression, interpersonal conflicts, life transitions, childhood abuse) [facility] [address] [place] [address] (Assist with solving problem marital difficulties, separation & divorce, aging parents, & grief, chronic & terminal illness) [facility] [address] [place] [address] (Deal with loss & grief, anxiety, marital difficulties) Homebound/Mental Health Services [address], [address] [place] [address] (Provide in-home mental services to people who are incapable of leaving their homes) Organization for Needs of the Elderly Senior Service/Resource Center [address] [place] [address] [facility] [address] [place] [address] PSYCHIATRIC OUTPATIENT SERVICES [facility] Partial Hospitalization and Intensive Outpatient Program (Managed Care and [place] Only)[address] [facility] [phone] [facility] Partial Hospitalization and Outpatient [id number] [place], [place] [phone] [facility] Partial Hospitalization and Outpatient [id number] Jarvis [place], [place] [phone] JARVIS PYLE [facility] Mental Health Center [id number] [facility]. [address] [place], [place] [phone] [facility] Jarvis Pyle Partial Hospitalization and Outpatient [id number] [facility] Jarvis PyleREA, [phone] Crisis and Hotline Telephone Numbers 24-Hour service unless stated [place] Crisis Hotlines: [facility] Mental Health/Crisis Line........273.377.3245 Suicide Prevention Center (24 Hours).......[phone] Suicide Prevention Crisis Center.......923.924.3222 (24 Hours) Assaults Against Women Hotline.........731.331.3294 (24 Hours -- [facility]) Women and Children Crisis Skilled Nursing...........[phone] (24 Hours) Child Abuse Hotline............292.319.4954 [facility] of Childrens Services Rape Treatment Center (24 Hours)..........[phone] Alcoholics Anonymous (24 Hours)..........662.191.2199 Cocaine Anonymous (24 Hours)............967.406.7507 Narcotics Anonymous (24 Hours)..........726.131.7205 GIUSEPPE VEE [facility] [address] [place] [address] Mental Health Services Debora Sesay [address] [place] [address] Services: Outpatient therapy for children, teens, young adults, adults, older adults, and families; Psychiatric services, medication support Crisis and Hotline Telephone Numbers 24-Hour service unless stated [place] Crisis Hotlines: Wayne NeAgueda Mental Health/Crisis Line........485.523.6716 Suicide Prevention Center (24 Hours).......[phone] Suicide Prevention Crisis Center.......[phone] (24 Hours) Alcoholics Anonymous (24 Hours)..........101.237.2058 [place] Crisis Hotlines: Alcohol and Drug Helpline - Provides referrals to local facilities where adolescents and adults can seek help. Brief intervention. [facility] Helpline National [place] for the Mentally Ill 0-830-415-VIVEK National Youth Crisis Hotline [place] Mental Health Assn. Provides free information on specific disorders, referral directory to mental health providers, national directory of local mental health associations (M-F, 9-5 EST) National Center of Mental Health Information Line: Provide sinformation and literature on mental illness by disorder-for professionals and general public.
[2020-08-22 14:34] LABS: BASOPHILS # (AUTO) 0.1 /CMM (0.0-0.2); BASOPHILS % (AUTO) 0.5 % (0.0-2.0); HEMATOCRIT 37 % (33-45); HEMOGLOBIN 11.9 g/dL (11.5-14.8); LYMPHOCYTES # (AUTO) 1.5 /CMM (0.8-4.8); LYMPHOCYTES % (AUTO) 10.7 % (20.0-44.0); MEAN CORPUSCULAR HGB CONC 32 g/dl (31.0-36.0); MEAN CORPUSCULAR VOLUME 80 fL (82-100); MONOCYTES # (AUTO) 0.9 /CMM (0.1-1.30); MONOCYTES % (AUTO) 6.3 % (2.0-12.0); NEUTROPHILS # (AUTO) 11.3 /CMM (1.8-8.9); NEUTROPHILS % (AUTO) 82.5 % (43.0-81.0); PLATELET COUNT (AUTO) 352 /CMM (150-450); RED BLOOD CELL COUNT(AUTO) 4.66 MIL/uL (4.0-5.2); WHITE BLOOD COUNT (AUTO) 13.7 K/uL (4.3-11.0)
--- NOTE | 2020-08-22 15:00 | NUR ---
Pt wanted to sign AMA Dr Boyd aware. Form signed Pt AAO, Appropriate and responsive Refusing further interventions at this time. Pulled HL out. Asked for water-provided and she was Able to take sips. Ambulatory gait steady. Pt called family for black pickler and walked out.
[2020-08-22 15:07] VITALS: BP 135/90
[2020-08-22 15:28] LABS: CALCIUM, SERUM 7.5 mg/dL (8.5-10.1); CREATININE 0.7 mg/dL (0.6-1.3); POTASSIUM 3.6 mmol/L (3.5-5.1)
[2020-08-22 15:39] LABS: ALBUMIN 3.4 g/dL (3.4-5.0); BILIRUBIN,DIRECT 0.3 mg/dL (0.0-0.2); BILIRUBIN,TOTAL 0.7 mg/dL (0.2-1.0); TOTAL PROTEIN, SERUM 7.6 g/dL (6.4-8.2)
[2020-08-22 15:57] LABS: BAND % (MANUAL) 2 % (0.0-5.0); LYMPHOCYTES % (MANUAL) 7 % (16-48); MONOCYTES % (MANUAL) 5 % (0-11.0); NEUTROPHILS % (MANUAL) 86 (42-76)
== END 2020-08-22 15:08 | disposition left against medical advice (07) ==
LOC: ER 13:57
DX: F10.129 Alcohol abuse with intoxication, unspecified (principal); R74.8 Abnormal levels of other serum enzymes; R10.13 Epigastric pain; I10 Essential (primary) hypertension; E11.9 Type 2 diabetes mellitus without complications; F32.9 Major depressive disorder, single episode, unspecified; E03.9 Hypothyroidism, unspecified; Z98.890 Other specified postprocedural states; Z88.6 Allergy status to analgesic agent; Z88.8 Allergy status to other drugs, medicaments and biological substances; Z79.899 Other long term (current) drug therapy; Y90.6 Blood alcohol level of 120-199 mg/100 ml
CPT/HCPCS: 36415; 80048; 80076; 80320; 83690; 85007; 85025; 96361; 96374; 99283; J2405; J7030; G0480

== ENCOUNTER 2020-08-23 04:00 | Emergency (ER) | payer MEDICARE, OTHER ==
[~2020-08-23] VITALS: Ht 165.1 cm; Wt 120.2 kg
[2020-08-23 04:02] VITALS: BP 148/68
--- NOTE | 2020-08-23 05:07 | NUR ---
CALLED PATIENT TO BE PLACED IN ROOM, NOT IN WAITING ROOM
== END 2020-08-23 05:23 | disposition left against medical advice (07) ==
LOC: ER 04:02
DX: Z53.21 Procedure and treatment not carried out due to patient leaving prior to being seen by health care provider (principal); J34.89 Other specified disorders of nose and nasal sinuses; R09.81 Nasal congestion; I10 Essential (primary) hypertension; F32.9 Major depressive disorder, single episode, unspecified; E03.9 Hypothyroidism, unspecified; D64.9 Anemia, unspecified; Z98.890 Other specified postprocedural states

== ENCOUNTER 2020-09-04 06:25 | Emergency (ER) | payer MEDICARE, OTHER ==
[~2020-09-04] VITALS: Ht 154.9 cm; Wt 106.6 kg
--- NOTE | 2020-09-04 06:39 | NUR ---
JERZY FROM HOME FOR ETOH. PT ADMITTED ON DRINKING "TO MUCH" ALCOHOL. PER EMS PT HAD AN EPISODE OF TRIP AND FALL AT HOME . NOTED W/ SOME DRIED BLOOD IN HER MOUTH. PT VERY SLEEPY BUT AROUSES TO NAME AND RESOPNSIVE. NO C/O PAIN OR DISCOMFORT AT THIS TIME. PT WAS ASSISTED TO BED 12 ER AND WAS PLACED ON A MONITOR . VSS. WILL CONT TO MONITOR.
[2020-09-04 06:57] LABS: BASOPHILS # (AUTO) 0.1 /CMM (0.0-0.2); EOSINOPHILS % (AUTO) 0.2 % (0.0-6.0); HEMATOCRIT 35 % (33-45); HEMOGLOBIN 11.3 g/dL (11.5-14.8); LYMPHOCYTES # (AUTO) 3.5 /CMM (0.8-4.8); LYMPHOCYTES % (AUTO) 35.1 % (20.0-44.0); MEAN CORPUSCULAR HGB CONC 32 g/dl (31.0-36.0); MEAN CORPUSCULAR VOLUME 80 fL (82-100); MONOCYTES # (AUTO) 0.7 /CMM (0.1-1.30); MONOCYTES % (AUTO) 7.4 % (2.0-12.0); NEUTROPHILS # (AUTO) 5.6 /CMM (1.8-8.9); NEUTROPHILS % (AUTO) 56.3 % (43.0-81.0); PLATELET COUNT (AUTO) 723 /CMM (150-450); RED BLOOD CELL COUNT(AUTO) 4.36 MIL/uL (4.0-5.2)
[2020-09-04 07:07] LABS: CREATININE 0.8 mg/dL (0.6-1.3); POTASSIUM 3.3 mmol/L (3.5-5.1)
[2020-09-04 07:20] LABS: BILIRUBIN,DIRECT 0.1 mg/dL (0.0-0.2); BILIRUBIN,TOTAL 0.2 mg/dL (0.2-1.0); TOTAL PROTEIN, SERUM 6.9 g/dL (6.4-8.2)
--- NOTE | 2020-09-04 07:37 | NUR ---
ASSESSED PT ON BED ASLEEP EASILY AROUSABLE, NOT IN RESPIRATORY DISTRESS, V/S STABLE, KEPT AND COMFORTABLE. WILL CONTINUE TO MONITOR.
[2020-09-04 08:07] LABS: LIPASE 205 U/L (73-393); MAGNESIUM 1.8 mg/dL (1.8-2.4)
[2020-09-04 12:12] LABS: BILIRUBIN,URINE Negative (NEGATIVE); COLOR,URINE YELLOW (YELLOW); LEUKOCYTE ESTERASE ,URINE Negative (NEGATIVE); NITRITE, URINE Negative (NEGATIVE); PROTEIN,URINE Negative (NEGATIVE); UGLUCOSE Negative (NEGATIVE); UROBILINOGEN,URINE 0.2 EU/dL (0.2)
--- NOTE | 2020-09-04 12:25 | NUR ---
FEATHER STITCHER AT BEDSIDE FOR EVAL.
--- NOTE | 2020-09-04 12:50 | NUR ---
SS consult: SS consult requested for ETOH Abuse. The pt. is a 39-year-old female. Per EMR, the pt. was intoxicated at home and had a fall. Per EMR, roommates called paramedics and pt. was [facility] ER for Tx. LUISA met with pt. bedside and pt. is A&O X 4. The pt. appears disheveled with injury on Left side of face possibly due to fall incident. The pt. states she is afraid of small spaces and asked for curtain to be opened. The pt. makes good eye contact and pt.s mood is depressed with flat affect. is claiming SI with no plan. SW offered psych placement for treatment and pt. is agreeable. SW explored pt.s mental health Hx. Pt. stated that she has been diagnosed with Bipolar Type II and is on Latuda & Effexor. Pt. denies HI & denies hallucinations. SW explored patients drinking habits. Per pt. she has been drinking for about7 years because she had a stillborn baby about 10 years ago. Pt. stated she drinks alcohol every day and drank vodka last night. Pt. stated she drinks out of the bottle and unable to specify how much. Pt. stated she has been to [facility] before for alcohol rehab and is interested in outpatient Tx for ETOH. SW will refer patient. LUISA explored pt.s living situation. Pt. states she resides at [address] [place] [address] [address] [place] [phone] with her boyfriend, Yaniv Covarrubias [phone]. Plan: LUISA referred pt. to [facility] [[address] [place] [phone] ] for inpatient psychiatric treatment. LUISA will follow up as needed. LUISA provided pt. with the following addiction & mental health resources and patient accepted them : ADDICTION RESOURCES: For Drugs and Alcohol [facility] Substance Abuse Helpline(SAS)-[facility] Outpatient treatment, residential treatment, recovery support for youth and adults [facility] www.actionfamilycounseling.CYPHER [facility] Teen programs for drug/alcohol education and support [facility]. Program for adults, sliding scale provides support and education [employer] [place] www.vendome 1699.org [place]; Outpatient/residential treatment programs; transition to sober living Cri-Help www.cri-help.org [place]; Outpatient and residential treatment programs; transition to sober living I-ADARP Inter [place] [facility]; Outpatient education and supportive programs for teens and adults [place] [facility] www.[facility]womensrecpacific[facility] hospital [facility].org [place]; Residential treatment and work program for females only [facility] www.Push [facility].ePartners [place]: Outpatient/residential treatment program for teens and young adults [facility] www.[facility].org [facility] Detox, inpatient, outpatient for adults and youth [facility], [facility]. [place]; Outpatient programs and referrals to community residential programs. Alcoholics Anonymous -SFV information and meeting and schedules www.aa-intergroup.org Ny-Mstb-Lrzzgyo https://al-anon.org/ [place] support groups for family of alcoholics. Marijuana Anonymous www.madistrict6.org -SFV listing of meetings Narcotics Anonymous www.na.org SOBER LIVING RESOURCES The Sober Living Network www.soberhousing.net A non-profit agency that provides resources to recovery and sober living homes throughout [place], [facility] Sober Living Homes: A Work in Progress, Rajinder María [facility] Cellrox [place] Recovery Advocates, [place] [facility] Womens Sober Living Homes: [facility] x [address] [place], [place] [facility] [place] [facility] Coed Sober Living Homes: [facility] Counseling--Outpatient [facility] [address] [place] [address] (Specializes in in-depth psychotherapy for emotional distress: anxiety, depression, interpersonal conflicts, life transitions, childhood abuse) [facility] [address] [place] [address] (Assist with solving problem marital difficulties, separation & divorce, aging parents, & grief, chronic & terminal illness) [facility] [address] [place] [address] (Deal with loss & grief, anxiety, marital difficulties) Homebound/Mental Health Services [address] [facility] [address] [place] [address] (Provide in-home mental services to people who are incapable of leaving their homes) Organization for Needs of the Elderly Senior Service/Resource Center [address] [place] [address] [facility] [address] [place] [address] PSYCHIATRIC OUTPATIENT SERVICES [facility] Partial Hospitalization and Intensive Outpatient Program (Managed Care and [place] Only)[address] [facility]. [facility] [phone] [facility] Partial Hospitalization and Outpatient [id number] [facility]. [address] [place], [place] [phone] [facility] Partial Hospitalization and Outpatient Hwafhad3417 Dewey [facility] [place], [place] [phone] [facility] Mental Health Center [id number] [facility] [address] [place], [place] [phone] [facility] Partial Hospitalization and Outpatient [id number] Emelita [facility] Shaw [phone] Crisis and Hotline Telephone Numbers 24-Hour service unless stated [place] Crisis Hotlines: streamit. Mental Health/Crisis Line........[phone] Suicide Prevention Center (24 Hours).......[phone] Suicide Prevention Crisis Center.......[phone] (24 Hours) Assaults Against Women Hotline.........735.833.7662 (24 Hours -- [facility] Women and Children Crisis Prison...........[phone] (24 Hours) Child Abuse Hotline............369.102.2038 [facility] of Childrens Services Rape Treatment Center (24 Hours)..........[phone] Alcoholics Anonymous (24 Hours)..........[phone] Cocaine Anonymous (24 Hours)............[phone] Narcotics Anonymous (24 Hours)..........879.626.1230 LUZ VEE [facility] [address] [place] [address] [address] Health [address] [address] Services: Outpatient therapy for children, teens, young adults, adults, older adults, and families; Psychiatric services, medication support Crisis and Hotline Telephone Numbers 24-Hour service unless stated [place] Crisis Hotlines: streamit. Mental Health/Crisis Line........[phone] Suicide Prevention Center (24 Hours).......[phone] Suicide Prevention Crisis Center.......[phone] (24 Hours) Alcoholics Anonymous (24 Hours)..........192.188.2725 [place] Crisis Hotlines: Alcohol and Drug Helpline - Provides referrals to local facilities where adolescents and adults can seek help. Brief intervention. [facility] Helpline National [place] for the Mentally Ill 7-164-264-VIVEK National Youth Crisis Hotline [place] Mental Health Assn. Provides free information on specific disorders, referral directory to mental health providers, national directory of local mental health associations (M-F, 9-5 EST) National [place] of Mental Health Information Line: Provide sinformation and literature on mental illness by disorder-for professionals and general public.
--- NOTE | 2020-09-04 12:55 | NUR ---
SW referred pt. to [facility] [[address] [place] [place] [address] ] for inpatient psychiatric treatment.
--- NOTE | 2020-09-04 14:00 | NUR ---
Discharge plan: SW met with patient bedside to inform her that patient has been [facility] for psych Tx. Patient stated that she is no longer feeling suicidal and wants to be discharged to home. SW assisted patient in calling her boyfriend, Yaniv Covarrubias [phone]. Yaniv stated he will curing pickling packer the patient from [facility] after he gets out of work at 7 PM. Noted. LUISA informed charge nurse, Jeff who expressed understanding .
--- NOTE | 2020-09-04 14:05 | NUR ---
LUISA referred patient to [facility] [phone] for outpatient services as requested by patient. LUISA sent clinicals to [email or web address].
[2020-09-04 14:25] VITALS: BP 126/77
--- NOTE | 2020-09-04 14:25 | NUR ---
RE-EVALUATED BY DR FAY, WALKING IN THE HALLWAY WITH STEADY GAIT
--- NOTE | 2020-09-04 14:38 | NUR ---
CLEARED FOR D/C AND ALLOWED TO SIT IN WAITING ROOM REQUESTED TO WAIT FOR BOYFIEND/RIDE
== END 2020-09-04 14:42 | disposition home or self-care (01) ==
LOC: ER 06:28
DX: S09.8XXA Other specified injuries of head, initial encounter (principal); R45.851 Suicidal ideations; F10.129 Alcohol abuse with intoxication, unspecified; R74.01 Elevation of levels of liver transaminase levels; E11.65 Type 2 diabetes mellitus with hyperglycemia; I10 Essential (primary) hypertension; F32.9 Major depressive disorder, single episode, unspecified; E03.9 Hypothyroidism, unspecified; D64.9 Anemia, unspecified; Z98.890 Other specified postprocedural states; Z88.6 Allergy status to analgesic agent; Z88.8 Allergy status to other drugs, medicaments and biological substances; Z79.899 Other long term (current) drug therapy; W19.XXXA Unspecified fall, initial encounter; Y93.89 Activity, other specified; Y92.89 Other specified places as the place of occurrence of the external cause; Y99.8 Other external cause status; Y90.9 Presence of alcohol in blood, level not specified
CPT/HCPCS: 36415; 70450-TC; 70486-TC; 72125-TC; 80048-TC; 80076-TC; 83690-TC; 83735-TC; 84484-TC; 84702-TC; 85025-TC; 85610-TC; 85730-TC; G0480

== ENCOUNTER 2020-09-11 22:20 | Emergency (ER) | payer MEDICARE, OTHER ==
[~2020-09-11] VITALS: Ht 154.9 cm; Wt 104.3 kg
--- NOTE | 2020-09-11 22:26 | NUR ---
JERZY. TO ER BED 12. AAOX4. NOT IN RESP DISTRESS. TRANSFERRED FROM [facility] TO BED ON HER OWN. PT SMELLS OF ALCOHOL. PER EMS REPORT, PT HAS BEEN DRINKING FOR THE PAST 3 DAYS. PT IS COOPERATIVE AND COMPLIANT DESPITE BEING INTOXICATED. WAS AT THE BEDSIDE FOR EVAL. AWAITING ORDERS.
[2020-09-11 23:20] VITALS: BP 140/99
--- NOTE | 2020-09-12 00:15 | NUR ---
ROSAMARIA FALCON FROM FACILITY, MD HARDY
== END 2020-09-12 00:15 | disposition left against medical advice (07) ==
LOC: ER 22:20
DX: F10.129 Alcohol abuse with intoxication, unspecified (principal); I10 Essential (primary) hypertension; E11.9 Type 2 diabetes mellitus without complications; F32.9 Major depressive disorder, single episode, unspecified; E03.9 Hypothyroidism, unspecified; D64.9 Anemia, unspecified; Z98.890 Other specified postprocedural states; Z88.6 Allergy status to analgesic agent; Z88.8 Allergy status to other drugs, medicaments and biological substances; Z79.899 Other long term (current) drug therapy; Y90.9 Presence of alcohol in blood, level not specified

== ENCOUNTER 2020-09-24 00:24 | Emergency (ER) | payer MEDICARE, OTHER ==
--- NOTE | 2020-09-24 00:28 | NUR ---
PT GOT UP FROM RA AHMADI AND STATES "I WANT TO LEAVE" PRIOR TO TRIAGE ASSESSMENT/REPORT FROM RA. AMBULATORY WITH STEADY GAIT. MD HARDY
== END 2020-09-24 00:33 | disposition left against medical advice (07) ==
LOC: ER 00:26
DX: F10.129 Alcohol abuse with intoxication, unspecified (principal); I10 Essential (primary) hypertension; E11.9 Type 2 diabetes mellitus without complications; F31.9 Bipolar disorder, unspecified; E03.9 Hypothyroidism, unspecified; Y90.9 Presence of alcohol in blood, level not specified; Z87.11 Personal history of peptic ulcer disease; Z98.890 Other specified postprocedural states; Z88.6 Allergy status to analgesic agent; Z88.5 Allergy status to narcotic agent; Z88.8 Allergy status to other drugs, medicaments and biological substances; Z79.899 Other long term (current) drug therapy

== ENCOUNTER 2020-10-23 20:52 | Emergency (ER) | payer MEDICARE, OTHER ==
[~2020-10-23] VITALS: Ht 154.9 cm; Wt 105.2 kg
--- NOTE | 2020-10-23 21:02 | NUR ---
PT BIB RA C/O ETOH AND BEING AGGRESSIVE. PT UNWILLING TO ANSWER QUESTIONS. BREATHING EVEN AND UNLABORED. PT ATTACHED TO MONITOR AND POX. CALL LIGHT WITHIN REACH. WILL CONTINUE TO MONITOR.
[2020-10-23] MEDS ORDERED: LORAZEPAM INJ 2 MG/ML VIAL ONE ×2 (21:28→22:57)
[2020-10-23] MEDS ORDERED: HALOPERIDOL LACTATE INJ 5 MG/ML VIAL ONE (21:28)
[2020-10-23] MEDS: diphenhydrAMINE HCL 50 MG/ML VIAL IM ONE ×2 (21:35→23:00)
[2020-10-23] MEDS: HALOPERIDOL LACTATE INJ 5 MG/ML VIAL IM ONE (21:35)
[2020-10-23] MEDS ORDERED: diphenhydrAMINE HCL 50 MG/ML VIAL ONE ×2 (21:35→22:57)
[2020-10-23] MEDS: LORAZEPAM INJ 2 MG/ML VIAL IM/IV ONE (21:35)
--- NOTE | 2020-10-23 22:58 | NUR ---
VERBAL ORDER 2MG OF ATIVAN AND 25MG OF BENADRYL IM
[2020-10-23] MEDS: LORAZEPAM INJ 2 MG/ML VIAL IM ONE (23:00)
--- NOTE | 2020-10-24 02:03 | NUR ---
PT PICKED UP BY BOYFRIEND. AMBULATED OUT OF ED WITH STEADY GAIT. VSS.
[2020-10-24 02:04] VITALS: BP 134/76
== END 2020-10-24 02:04 | disposition home or self-care (01) ==
LOC: ER 20:53
DX: F10.129 Alcohol abuse with intoxication, unspecified (principal); I10 Essential (primary) hypertension; E11.9 Type 2 diabetes mellitus without complications; F32.9 Major depressive disorder, single episode, unspecified; E03.9 Hypothyroidism, unspecified; D64.9 Anemia, unspecified; Z98.890 Other specified postprocedural states; Z88.6 Allergy status to analgesic agent; Z88.8 Allergy status to other drugs, medicaments and biological substances; Z79.899 Other long term (current) drug therapy; Y90.9 Presence of alcohol in blood, level not specified
CPT/HCPCS: 96372 ×2; 99284; J1200 ×2; J1630; J2060 ×2